=== PATIENT | male | born 1960 | race African-American/Black ===

== ENCOUNTER 2018-11-10 14:20 | Outpatient (RCR) | payer MEDICARE, MEDICAID | END 2018-12-04 | disposition home or self-care (01) | LOC: WCC 14:20 | DX: L59.8 Other specified disorders of the skin and subcutaneous tissue related to radiation (principal); N30.40 Irradiation cystitis without hematuria; Z85.46 Personal history of malignant neoplasm of prostate; Z90.79 Acquired absence of other genital organ(s); Z79.899 Other long term (current) drug therapy | CPT/HCPCS: G0277; G0463 ==

== ENCOUNTER 2018-12-08 10:30 | Outpatient (RCR) | payer MEDICARE, MEDICAID | END 2019-01-03 | disposition home or self-care (01) | LOC: WCC 10:30 | DX: L59.8 Other specified disorders of the skin and subcutaneous tissue related to radiation (principal); Z90.79 Acquired absence of other genital organ(s); Z85.46 Personal history of malignant neoplasm of prostate; Z79.899 Other long term (current) drug therapy | CPT/HCPCS: G0277; G0463 ==

== ENCOUNTER 2019-01-04 08:35 | Outpatient (RCR) | payer MEDICARE, MEDICAID | END 2019-02-03 | disposition home or self-care (01) | LOC: WCC 08:35 | DX: L59.8 Other specified disorders of the skin and subcutaneous tissue related to radiation (principal); Z90.79 Acquired absence of other genital organ(s); Z87.891 Personal history of nicotine dependence; N30.41 Irradiation cystitis with hematuria | CPT/HCPCS: G0277; G0463 ==

== ENCOUNTER 2019-06-15 15:01 | Outpatient (RCR) | payer MEDICARE, MEDICAID | END 2019-07-05 | disposition home or self-care (01) | LOC: WCC 15:01 | DX: L59.8 Other specified disorders of the skin and subcutaneous tissue related to radiation (principal); N30.41 Irradiation cystitis with hematuria; Z85.46 Personal history of malignant neoplasm of prostate; Z90.79 Acquired absence of other genital organ(s); Z87.891 Personal history of nicotine dependence; Z79.899 Other long term (current) drug therapy | CPT/HCPCS: G0463 ==

== ENCOUNTER 2019-07-06 10:08 | Outpatient (RCR) | payer MEDICARE, MEDICAID | END 2019-08-04 | disposition home or self-care (01) | LOC: WCC 10:08 | DX: L59.8 Other specified disorders of the skin and subcutaneous tissue related to radiation (principal) ==